=== PATIENT | female | born 1955 | race African-American/Black ===

== ENCOUNTER 2016-11-11 07:40 | Emergency (ER) | payer SELFPAY ==
[2016-11-11 07:44] VITALS: BP 146/79; BMI 19.2
--- NOTE | 2016-11-11 08:13 | DR.GENAD ---
HPI - PCP Primary Care Physician: ULYSSES SANCHEZ - Complaint/Symptoms Chief Complaint Doctors Comments: Patient admits to toothache, swelling of lips. Has a headache not relieved by advil. The headache if frontal, pain level 5/10, not aggravated by noise. Chief Complaint:: PATIENT STATED THAT 3 WEEKS AGO SHE HAD A TOOTHACHE. HER EARS HURT AND NOW HAS CHEST CONGESTION AND ALSO STARTED SWELLING. 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 - Family History History of Family Medical Conditions: Yes Family Medical History: Hypertension - Social History Does patient currently use any type of tobacco product: Yes Have you used tobacco products in the last 12 months: Yes Type of Tobacco Use: Cigarettes Does any household member use tobacco: No Alcohol Use: Occasionally Do you use any recreational Drugs:: No Lives With: Family Lives Where: Home - infectious screening In the last 2 months have you had wt loss of >10#?: NO Have you had fever, night sweats or hemotysis?: No Have you traveled outside the country in the last 6 months?: No Isolation: Standard ROS - Review of Systems Eyes: No Symptoms Reported ENTM: See HPI Respiratoy: No Symptoms Reported Cardiovascular: No Symptoms Reported Gastrointestinal/Abdominal: No Symptoms Reported Genitourinary: No Symptoms Reported Neurological: No Symptoms Reported Musculoskeletal: No Symptoms Reported Integumentary: No Symptoms Reported Hematologic/Lymphatic: No Symptoms Reported Endocrine: No Symptoms Reported Psychiatric: No Symptoms Reported All Other Systems: Reviewed and Negative PE - Vital Signs Vitals: Temperature 97.9 F Pulse Rate 61 Respiratory Rate 20 Blood Pressure 146/79 O2 Sat by Pulse Oximetry 99 - General Limitations: No Limitations General Appearance: Alert, In No Apparent Distress - Head Head Exam: Normal Inspection, Atraumatic - Eyes Eye exam: Normal Appearance, PERRL, EOMI, Periorbital Swelling - ENT ENT Exam: Mucous Membranes Moist, Mucous Membranes Dry, TM's Normal Bilaterally External Ear Exam: Normal External Inspection TM/Canal Exam: Bilateral Normal Nose Exam: Normal Nose Exam Mouth Exam: Lip Swelling (upper lips) Throat Exam: Normal Inspection - Neck Neck Exam: Normal Inspection - Chest Chest Inspection: Normal Inspection - Respiratory Respiratory Exam: Normal Lung Sounds Bilat Respiratory Exam: Bilateral Clear to Auscultation - Cardiovascular Cardiovascular Exam: Regular Rate - Abdominal Exam Abdominal Exam: Normal Inspection Abdominal Tenderness: negative: RUQ, RLQ, LUQ, LLQ, Epigastrium, Suprapubic, Diffuse, Mild, Moderate, Severe, Other - Extremities Extremities Exam: Normal Inspection - Back Back Exam: Normal Inspection - Neurologic Neurological Exam: Alert, Oriented X3, CN II-XII Intact - Psychiatric Psychiatric Exam: Normal Affect - Skin Skin Exam: Warm, Dry, Intact - Diagnosis Discharge Problem: Headache above the eye region Allergic reaction Qualifiers: Encounter type: initial encounter Qualified Code(s): T78.40XA - Allergy, unspecified, initial encounter - Discharge Plan Condition: Stable - Follow ups/Referrals Follow ups/Referrals: ULYSSES SANCHEZ [Primary Care Provider] - 3 days - Instructions
== END 2016-11-11 08:27 | disposition home or self-care (01) ==
LOC: ER 07:47
DX: R51 Headache (principal); T78.40XA Allergy, unspecified, initial encounter
CPT/HCPCS: 99281; 99282

== ENCOUNTER 2023-10-09 14:26 | Observation (INO) ==
--- NOTE | 2023-10-09 14:40 | DR.SEIZA ---
HPI Time Seen Time Seen by Provider: 10/09/23 14:34 Complaints Chief Complaint Doctors Comments: 67-year-old female brought in by EMS for evaluation. Family called EMS stating patient was having possible seizure. On EMS arrival patient was awake and alert, no obvious seizure activity. Family told them the patient started shaking all over, but did not lose consciousness. EMS was told she has not been eating well the past 2 days. Patient states she is eating okay. She denies any fevers or chills. She denies sinus congestion, sore throat, cough patient denies any bowel or bladder issues. No report of chest pain or shortness of breath. 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 Family History Family Medical History: Hypertension Social History Does patient currently use any type of tobacco product: Yes Alcohol Use: DAILY Do you use any recreational Drugs:: No ROS Review of Systems Constitutional: No Symptoms Reported Eyes: No Symptoms Reported ENTM: No Symptoms Reported Respiratoy: Non-Productive Cough Cardiovascular: No Symptoms Reported Gastrointestinal/Abdominal: No Symptoms Reported Genitourinary: No Symptoms Reported Neurological: No Symptoms Reported Musculoskeletal: No Symptoms Reported Integumentary: No Symptoms Reported Hematologic/Lymphatic: No Symptoms Reported All Other Systems: Reviewed and Negative PE Vital Signs Vitals: Vital Signs Pulse Rate [Left] 92 Pulse Rate [Left] 69 Pulse Rate [Left] 71 Pulse Rate 65 Pulse Rate 68 Pulse Rate 66 Pulse Rate 88 Pulse Rate 72 Pulse Rate 68 Respiratory Rate 19 Respiratory Rate 19 Respiratory Rate 22 Respiratory Rate 21 Respiratory Rate 25 Respiratory Rate 20 Respiratory Rate 20 Respiratory Rate 27 Respiratory Rate 24 Respiratory Rate 20 Blood Pressure [Left Arm] 162/77 Blood Pressure [Left Arm] 231/129 Blood Pressure [Left Arm] 226/99 Blood Pressure [Left Arm] 231/97 Blood Pressure 162/77 Blood Pressure 167/83 Blood Pressure 178/85 O2 Sat by Pulse Oximetry 98 O2 Sat by Pulse Oximetry 98 O2 Sat by Pulse Oximetry 98 O2 Sat by Pulse Oximetry 98 O2 Sat by Pulse Oximetry 98 O2 Sat by Pulse Oximetry 100 General General Appearance: Alert and In No Apparent Distress Head Head Exam: Normal Inspection, Atraumatic and Normocephalic Eyes Eye exam: PERRL and EOMI ENT ENT Exam: Normal Oropharynx and Mucous Membranes Moist Neck Neck Exam: Normal Inspection and Full ROM; negative Tenderness Respiratory Respiratory Exam: Normal Lung Sounds Bilat; negative Accessory Muscle Use or Respiratory Distress Cardiovascular Cardiovascular Exam: Regular Rate, Normal Rhythm and Normal Heart Sounds Abdominal Exam Abdominal Exam: Normal Bowel Sounds and Soft; negative Tenderness Extremities Extremities Exam: Normal Inspection and Full ROM; negative Edema Neurologic Neurological Exam: Alert, CN II-XII Intact and Other (Patient has birthdate, not oriented to current date); negative Motor Sensory Deficit COURSE Treatment Treatment: 67-year-old female, sent in via EMS after having a seizure-like episode. Patient was reportedly shaking all over, no seizure active to 50 on EMS arrival. Patient was not postictal. Patient a bit confused, but history of altered mental status in the past, unsure of baseline. Physical exam is overall benign. She is neurologically intact except for slight confusion as to current date. Work-up initiated. Patient given IV fluids. 1646 -BP elevated when the patient was here, given IV hydralazine with good effect. CBC, CMP, TSH, lipase all normal. Troponin is slightly elevated 75.9. No acute ischemic changes on EKG. will repeat 2-hour troponin. Chest x-ray unremarkable for acute abnormalities. 1922 -family member states patient is sleepy, still confused. Patient does drink alcohol on a daily basis. Not sure if the patient had a syncopal episode with seizure-like activity while sitting up, versus a true seizure. CT of the head with chronic changes. Patient has been unable to give a urine sample, soaked a diaper. Recommend observation admission for further observation, will keep on a cardiac cath tech. Will continue IV fluids at a low rate. Patient sees Dr. Camarena, he is on-call [facility]. 1941 - he accepts the admission. [facility] Labs Reviewed Laboratory Results Reviewed?: Yes 10/09/23 14:57 10/09/23 14:57 Laboratory: WBC 7.9 X10^3/uL (3.6-10.0) 10/09/23 14:57 RBC 4.25 X10^6/uL (3.5-5.4) 10/09/23 14:57 Hgb 14.0 g/dL (12.0-16.0) 10/09/23 14:57 Hct 41.9 % (36.0-47.0) 10/09/23 14:57 MCV 98.5 fL (80.0-100.0) 10/09/23 14:57 MCH 32.8 pg (27.0-34.0) 10/09/23 14:57 MCHC 33.3 g/dL (33.0-35.0) 10/09/23 14:57 RDW 13.2 % (11.6-16.5) 10/09/23 14:57 Plt Count 288 X10^3/uL (150.0-450.0) 10/09/23 14:57 MPV 7.5 fL (7.4-11.0) 10/09/23 14:57 Neut % (Auto) 69.1 % (42.0-75.0) 10/09/23 14:57 Lymph % (Auto) 13.4 % (21.0-51.0) L 10/09/23 14:57 [place] % (Auto) 16.6 % (0.0-13.0) H 10/09/23 14:57 Eos % (Auto) 0.0 % (0.9-2.9) L 10/09/23 14:57 Baso % (Auto) 0.9 % (0.2-1.0) 10/09/23 14:57 Neut # (Auto) 5.5 x10^3/uL (2.2-4.8) H 10/09/23 14:57 Lymph # (Auto) 1.1 X10^3/uL (1.3-2.9) L 10/09/23 14:57 [place] # (Auto) 1.3 x10^3/uL (0.3-0.8) H 10/09/23 14:57 Eos # (Auto) 0.0 x10^3/uL (0.0-0.2) 10/09/23 14:57 Baso # (Auto) 0.1 X10^3/uL (0.0-0.1) 10/09/23 14:57 Absolute Nucleated RBC 0.2 /100WBC 10/09/23 14:57 Sodium 140 mmol/L (136-145) 10/09/23 14:57 Corrected Sodium 141 mmol/L (136-145) 10/09/23 14:57 Potassium 3.9 mmol/L (3.5-5.1) 10/09/23 14:57 Chloride 100 mmol/L (98-107) 10/09/23 14:57 Carbon Dioxide 22.9 mmol/L (21-32) 10/09/23 14:57 BUN 13 mg/dL (7-18) 10/09/23 14:57 Creatinine 1.23 mg/dL (0.55-1.02) H 10/09/23 14:57 Est GFR (MDRD) Af Amer 56 (>60) L 10/09/23 14:57 Est GFR (MDRD) Non-Af 47 (>60) L 10/09/23 14:57 Glucose 140 mg/dL (65-99) H 10/09/23 14:57 Calcium 9.6 mg/dL (8.5-10.1) 10/09/23 14:57 Corrected Calcium TNP 10/09/23 14:57 Total Bilirubin 0.90 mg/dL (0.2-1.0) 10/09/23 14:57 AST 53 Units/L (15-37) H 10/09/23 14:57 ALT 39 Units/L (12-78) 10/09/23 14:57 Alkaline Phosphatase 112 Units/L (46-116) 10/09/23 14:57 Ammonia < 10 umol/L (11-32) L 10/09/23 14:57 Troponin I High Sens 75.3 ng/L (4.0-60.0) H* 10/09/23 17:00 Total Protein 8.2 g/dL (6.4-8.2) 10/09/23 14:57 Albumin 3.6 g/dL (3.4-5.0) 10/09/23 14:57 Globulin 4.6 g/dL (2.5-4.5) H 10/09/23 14:57 Albumin/Globulin Ratio 0.8 Ratio (1.1-2.1) L 10/09/23 14:57 Lipase 61 Units/L (16-77) 10/09/23 14:57 TSH 3rd Generation 1.928 uIU/mL (0.358-3.74) 10/09/23 14:57 XRAY XRAY Interpreted by: Both X-ray Results: EXAM: CHEST, 1 VIEW HISTORY: altered mental status; COMPARISON: Prior study or studies were utilized for comparison during interpretation with the most relevant dated 06/14/2023 TECHNIQUE: CHEST, 1 VIEW FINDINGS: Chest: Lines and tubes: Cardiac leads overlie the chest. Mediastinum: Cardiac and mediastinal shadow is within normal limits for size and contour. Pulmonary vessels: No pulmonary vascular congestion. Lung lee: No suspicious airspace opacity. Pleura: No effusion. No pneumothorax. Bones and soft tissues: No acute osseous or soft tissue abnormality. IMPRESSION: 1. No acute cardiopulmonary abnormality THIS IS AN ELECTRONICALLY VERIFIED FINAL REPORT 10/09/2023 3:18 PM - Electronically signed by Nikko Muñoz MD EXAM: BRAIN W/O CON HISTORY: Patient found conscious responding to verbal commands, but confused.; COMPARISON: Head CT 06/13/2023 TECHNIQUE: Multiple CT axial images of the brain were obtained without IV contrast. Coronal and sagittal images were reconstructed. Dose reduction techniques included Automated Exposure Control (AEC) and adjustment of mA and kV. FINDINGS: Age-related findings include central and cortical atrophy with areas of low density in the periventricular white matter compatible with micro-ischemic changes. Otherwise allison and white matter have normal differentiation. There is no mass, shift, or hemorrhage. Cerebellar tonsils are at an appropriate level. No fluid in the sinuses or mucosal thickening to suggest sinusitis. There is no mastoid effusion. There is no calvarium fracture. IMPRESSION: 1. No acute finding THIS IS AN ELECTRONICALLY VERIFIED FINAL REPORT 10/09/2023 4:18 PM - Electronically signed by Lance Galicia MD EKG Rate: 60 [place]: Normal Rhythm: NSR ST: Nonsp Opioid Opioid Risk Tool Age (Mitchell box if 16-45): No History of Preadolescent Sexual Abuse: No Total: 0 Total Score Risk Category: Low Risk Copyright: [facility] predicting aberrant behaviors Discharge Plan Diagnosis Discharge Problem: Altered mental status, Episode of syncope Discharge Plan Patient Disposition: ADMITTED INPATIENT Condition: Stable Prescriptions: No [facility] Concerns: Post Hospitalization: new medications and changes needed to prevent readmission or further decline. Pt educated and given instructions on all concerns. Plan of Treatment: Continue with present treatment and follow up plan. Pt is to keep follow up appointment as instructed and take medications as ordered. Orders to Discharge Patient Discharge Orders: Transfer (Routine); Ordered 06/06/24 Ordered By: Bruce Hayward Follow ups/Referrals Follow ups/Referrals: VALERIE ACOSTA [Primary Care Provider] - 3 days
[2023-10-09] MEDS: NS 500 ML IV 500 ML IV ONE (14:44)
--- NOTE | 2023-10-09 14:50 | EKG ---
Test Reason : altered mental status Blood Pressure : */* mmHG Vent. Rate : 60 BPM Atrial Rate : 60 BPM P-R Int : 164 ms QRS Dur : 104 ms QT Int : 528 ms P-R-T Axes : 69 72 73 degrees QTc Int : 528 ms Normal sinus rhythm T wave abnormality, consider anterior ischemia prominent U wave Prolonged QT Abnormal ECG No previous ECGs available Confirmed by Piyush Leal MD ([id number]) on 10/10/2023 7:34:38 AM Referred By: Confirmed By: Piyush Leal MD
[2023-10-09] MEDS: ZOFRAN INJ 4 MG VIAL IVP ONE ×2 (15:17→17:22)
--- NOTE | 2023-10-09 15:22 | RAD ---
EXAM: CHEST, 1 VIEW HISTORY: altered mental status; COMPARISON: Prior study or studies were utilized for comparison during interpretation with the most relevant thea ed 06/14/2023 TECHNIQUE: CHEST, 1 VIEW FINDINGS: Chest: Lines and tubes: Cardiac leads overlie the chest. Mediastinum: Cardiac and mediastinal shadow is within normal limits for size and contour. Pulmonary vessels: No pulmonary vascular congestion. Lung lee: No suspicious airspace opacity. Pleura: No effusion. No pneumothorax. Bones and soft tissues: No acute osseous or soft tissue abnormality. IMPRESSION: 1. No acute cardiopulmonary abnormality THIS IS AN ELECTRONICALLY VERIFIED FINAL REPORT 10/09/2023 3:18 PM - Electronically signed by Nikko Muñoz MD
[2023-10-09 15:29] LABS: BASOPHILS # (AUTO) 0.1 X10^3/uL (0.0-0.1); BASOPHILS % (AUTO) 0.9 % (0.2-1.0); HEMATOCRIT 41.9 % (36.0-47.0); LYMPHOCYTES # (AUTO) 1.1 X10^3/uL (1.3-2.9); LYMPHOCYTES % (AUTO) 13.4 % (21.0-51.0); MEAN CORPUSCULAR HEMOGLOBIN 32.8 pg (27.0-34.0); MEAN CORPUSCULAR HGB CONC 33.3 g/dL (33.0-35.0); MEAN CORPUSCULAR VOLUME 98.5 fL (80.0-100.0); MEAN PLATELET VOLUME 7.5 fL (7.4-11.0); MONOCYTES # (AUTO) 1.3 x10^3/uL (0.3-0.8); MONOCYTES % (AUTO) 16.6 % (0.0-13.0); NEUTROPHILS # (AUTO) 5.5 x10^3/uL (2.2-4.8); NEUTROPHILS % (AUTO) 69.1 % (42.0-75.0); PLATELET COUNT 288 X10^3/uL (150.0-450.0); RED BLOOD COUNT 4.25 X10^6/uL (3.5-5.4); RED CELL DISTRIBUTION WIDTH 13.2 % (11.6-16.5); WHITE BLOOD COUNT 7.9 X10^3/uL (3.6-10.0)
[2023-10-09 15:35] LABS: ALANINE AMINOTRANSFERASE 39 Units/L (12-78); ALBUMIN 3.6 g/dL (3.4-5.0); ALKALINE PHOSPHATASE 112 Units/L (46-116); ASPARTATE AMINO TRANSFERASE 53 Units/L (15-37); BLOOD UREA NITROGEN 13 mg/dL (7-18); CALCIUM 9.6 mg/dL (8.5-10.1); CARBON DIOXIDE 22.9 mmol/L (21-32); CHLORIDE 100 mmol/L (98-107); COR NA(FOR HYPERGLY) 141 mmol/L (136-145); CREATININE 1.23 mg/dL (0.55-1.02); GLUCOSE 140 mg/dL (65-99); LIPASE 61 Units/L (16-77); POTASSIUM 3.9 mmol/L (3.5-5.1); SODIUM 140 mmol/L (136-145); TOTAL PROTEIN 8.2 g/dL (6.4-8.2); TSH (3RD GENERATION) 1.928 uIU/mL (0.358-3.74); eGFR NON BLACK RACES 47 (>60)
[2023-10-09] MEDS: APRESOLINE INJ 20 MG VIAL IVP ONE (15:48)
--- NOTE | 2023-10-09 16:21 | CT ---
EXAM:BRAIN W/O CONHISTORY:Patient found conscious responding to verbal commands, but confused.;COMPARISON:Head CT 06/13/2023TECHNIQUE:Multiple CT axial images of the brain were obtained without IV contrast. Coronal and sagittal images were reconstructed. Dose reduction techniques included Automated Exposure Control (AEC) and adjustment of mA and kV.FINDINGS:Age-related findings include central and cortical atrophy with areas of low density in the periventricular white matter compatible with micro-ischemic changes.Otherwise allison and white matter have normal differentiation. There is no mass, shift, or hemorrhage. Cerebellar tonsils are at an appropriate level.No fluid in the sinuses or mucosal thickening to suggest sinusitis. There is no mastoid effusion. There is no calvarium fracture.IMPRESSION:1. No acute findingTHIS IS AN ELECTRONICALLY VERIFIED FINAL REPORT10/09/2023 4:18 PM - Electronically signed by Lance Galicia MD
[2023-10-09] MEDS: PROTONIX INJ 40 MG VIAL IVP ONE (17:20)
[2023-10-09 20:09] LABS: BILIRUBIN,URINE NEGATIVE (NEGATIVE); BLOOD/HEMOGLOBIN,URINE NEGATIVE (NEGATIVE); GLUCOSE, URINE NEGATIVE (NEGATIVE); KETONES,URINE 3+ (NEGATIVE); LEUKOCYTE ESTERASE ,URINE NEGATIVE (NEGATIVE); NITRITES,URINE NEGATIVE (NEGATIVE); PROTEIN,URINE 2+ (NEGATIVE); UROBILINOGEN,URINE NORMAL (NORMAL)
[2023-10-09 20:21] LABS: APPEARANCE,URINE CLEAR (CLEAR); BACTERIA,URINE TRACE /HPF (NEGATIVE); COLOR,URINE PALE YELLOW (YELLOW); RBC,URINE NONE SEEN /HPF (0-3); SQUAMOUS EPITHELIAL CELL,UR RARE /HPF (NEGATIVE)
[2023-10-09 22:21] VITALS: BMI 16.1
[2023-10-09] MEDS ORDERED: CONSULT PHARMACY - POTASSIUM & MAGNESIUM XX SCH (22:28)
[2023-10-09] MEDS: NS 1,000 ML IV 1,000 ML IV SCH (23:35)
[2023-10-10 06:23] LABS: BASOPHILS # (AUTO) 0.1 X10^3/uL (0.0-0.1); BASOPHILS % (AUTO) 0.7 % (0.2-1.0); HEMATOCRIT 38.1 % (36.0-47.0); HEMOGLOBIN 12.5 g/dL (12.0-16.0); LYMPHOCYTES # (AUTO) 1.2 X10^3/uL (1.3-2.9); LYMPHOCYTES % (AUTO) 15.5 % (21.0-51.0); MEAN CORPUSCULAR HEMOGLOBIN 32.4 pg (27.0-34.0); MEAN CORPUSCULAR HGB CONC 32.9 g/dL (33.0-35.0); MEAN CORPUSCULAR VOLUME 98.4 fL (80.0-100.0); MEAN PLATELET VOLUME 7.9 fL (7.4-11.0); MONOCYTES # (AUTO) 1.3 x10^3/uL (0.3-0.8); MONOCYTES % (AUTO) 17.7 % (0.0-13.0); NEUTROPHILS % (AUTO) 66.1 % (42.0-75.0); PLATELET COUNT 262 X10^3/uL (150.0-450.0); RED BLOOD COUNT 3.88 X10^6/uL (3.5-5.4); RED CELL DISTRIBUTION WIDTH 13.6 % (11.6-16.5); WHITE BLOOD COUNT 7.5 X10^3/uL (3.6-10.0)
[2023-10-10 07:00] LABS: ALANINE AMINOTRANSFERASE 33 Units/L (12-78); ALBUMIN 3.3 g/dL (3.4-5.0); ALKALINE PHOSPHATASE 90 Units/L (46-116); ASPARTATE AMINO TRANSFERASE 41 Units/L (15-37); BLOOD UREA NITROGEN 12 mg/dL (7-18); CALCIUM 8.9 mg/dL (8.5-10.1); CARBON DIOXIDE 23.9 mmol/L (21-32); CHLORIDE 102 mmol/L (98-107); COR CA(FOR HYPOALB) 9.5 mg/dL (8.5-10.1); GLUCOSE 90 mg/dL (65-99); POTASSIUM 3.4 mmol/L (3.5-5.1); SODIUM 141 mmol/L (136-145); TOTAL PROTEIN 7.4 g/dL (6.4-8.2); eGFR NON BLACK RACES 59 (>60)
--- NOTE | 2023-10-10 13:17 | EKG ---
Test Reason : elevated troponin Blood Pressure : */* mmHG Vent. Rate : 52 BPM Atrial Rate : 52 BPM P-R Int : 158 ms QRS Dur : 90 ms QT Int : 524 ms P-R-T Axes : 84 80 78 degrees QTc Int : 487 ms Sinus bradycardia RSR' or QR pattern in V1 suggests right ventricular conduction delay Possible Left atrial enlargement Nonspecific T wave abnormality Prolonged QT Abnormal ECG When compared with ECG of 09-OCT-2023 14:46, No significant change was found Confirmed by Piyush Leal MD ([id number]) on 10/11/2023 6:32:42 AM Referred By: Confirmed By: Piyush Leal MD
[2023-10-10] MEDS: PROTONIX INJ 40 MG VIAL ONE (14:05)
[2023-10-10] MEDS: APRESOLINE INJ 20 MG VIAL ONE (14:05)
[2023-10-10] MEDS: NS 1,000 ML IV 1,000 ML with MAGNESIUM SULFATE 50% INJ VIAL 1 G, MVI INJ (ADULT) 10 ML IV SCH (14:33)
[2023-10-10] MEDS: PROTONIX INJ 40 MG VIAL IVP SCH (14:33)
--- NOTE | 2023-10-10 14:41 | DR.H&P ---
H&P History & Physical for Day of: H&P Date: 10/10/23 Chief Complaint Chief Complaint: Possible seizure History of Present Illness History of Present Illness: This is a pleasant 67-year-old black female. EMS brought her to the [facility] emergency department for evaluation after the family called them. The patient told them they thought she was having a possible seizure. On arrival of the EMS stated that the patient was alert and awake. There was no obvious seizure activity at that time. The Family told him that the patient had been shaking all over, but she never lost consciousness. The patient is known to have alcohol use disorder, and she states she has been drinking beer every day ever since she was in her 20s. The family states that the patient has not been eating in the last couple of days and that her mental status has also gotten worse over the last several months. The patient denies fever, chills, sinus congestion, cough, sore throat, dysuria, abdominal pain, shortness of breath, or chest pain. She was found to have elevated troponins in the emergency department, but only slightly elevated. A repeat of these enzymes shows that they continue to be slightly elevated. There is no acute ischemic changes on the EKGs. This morning, the patient did not answer questions well and did not recall who her primary care physician was. We discovered that she sees the physicians at the [facility] in [place], [place]. We have not been able to get a medical list from them yet. The family is concerned about her worsening memory. I told him it could be related to chronic alcohol use and that we were going to check vitamin B12 and folate levels. We are also going to start her on a banana bag as well as an alcohol detox protocol. This should help replenish her vitamins if she is deficient in anything and to help minimize the risk of DTs. We will also continue to follow her serial cardiac enzymes and serial EKGs and consult cardiology. 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 Family History Family Medical History: Cancer Social History Does patient currently use any type of tobacco product: No Have you used tobacco products in the last 12 months: Yes Type of Tobacco Use: Cigarettes How many years tobacco product used: 49 Does any household member use tobacco: Yes Alcohol Use: DAILY Drug Use: Marijuana Medications Home Medications: Home Medications Medication Instructions Recorded Confirmed Type NK 10/09/23 10/09/23 History Allergies Allergies Allergy/AdvReac Type Severity Reaction Status Date / Time No Known Drug Allergies Allergy Verified 10/09/23 14:50 Labs 10/10/23 05:50 10/10/23 05:50 Labs: Laboratory WBC 7.5 X10^3/uL (3.6-10.0) 10/10/23 05:50 RBC 3.88 X10^6/uL (3.5-5.4) 10/10/23 05:50 Hgb 12.5 g/dL (12.0-16.0) 10/10/23 05:50 Hct 38.1 % (36.0-47.0) 10/10/23 05:50 MCV 98.4 fL (80.0-100.0) 10/10/23 05:50 MCH 32.4 pg (27.0-34.0) 10/10/23 05:50 MCHC 32.9 g/dL (33.0-35.0) L 10/10/23 05:50 RDW 13.6 % (11.6-16.5) 10/10/23 05:50 Plt Count 262 X10^3/uL (150.0-450.0) 10/10/23 05:50 MPV 7.9 fL (7.4-11.0) 10/10/23 05:50 Neut % (Auto) 66.1 % (42.0-75.0) 10/10/23 05:50 Lymph % (Auto) 15.5 % (21.0-51.0) L 10/10/23 05:50 [place] % (Auto) 17.7 % (0.0-13.0) H 10/10/23 05:50 Eos % (Auto) 0.0 % (0.9-2.9) L 10/10/23 05:50 Baso % (Auto) 0.7 % (0.2-1.0) 10/10/23 05:50 Neut # (Auto) 5.0 x10^3/uL (2.2-4.8) H 10/10/23 05:50 Lymph # (Auto) 1.2 X10^3/uL (1.3-2.9) L 10/10/23 05:50 [place] # (Auto) 1.3 x10^3/uL (0.3-0.8) H 10/10/23 05:50 Eos # (Auto) 0.0 x10^3/uL (0.0-0.2) 10/10/23 05:50 Baso # (Auto) 0.1 X10^3/uL (0.0-0.1) 10/10/23 05:50 Absolute Nucleated RBC 0.1 /100WBC 10/10/23 05:50 Sodium 141 mmol/L (136-145) 10/10/23 05:50 Corrected Sodium TNP 10/10/23 05:50 Potassium 3.4 mmol/L (3.5-5.1) L 10/10/23 05:50 Chloride 102 mmol/L (98-107) 10/10/23 05:50 Carbon Dioxide 23.9 mmol/L (21-32) 10/10/23 05:50 BUN 12 mg/dL (7-18) 10/10/23 05:50 Creatinine 1.00 mg/dL (0.55-1.02) 10/10/23 05:50 Est GFR (MDRD) Af Amer > 60 (>60) 10/10/23 05:50 Est GFR (MDRD) Non-Af 59 (>60) 10/10/23 05:50 Glucose 90 mg/dL (65-99) 10/10/23 05:50 Calcium 8.9 mg/dL (8.5-10.1) 10/10/23 05:50 Corrected Calcium 9.5 mg/dL (8.5-10.1) 10/10/23 05:50 Magnesium 2.6 mg/dL (2.0-2.9) 10/09/23 22:40 Total Bilirubin 1.20 mg/dL (0.2-1.0) H 10/10/23 05:50 AST 41 Units/L (15-37) H 10/10/23 05:50 ALT 33 Units/L (12-78) 10/10/23 05:50 Alkaline Phosphatase 90 Units/L (46-116) 10/10/23 05:50 Ammonia < 10 umol/L (11-32) L 10/09/23 14:57 Creatine Kinase 169 Units/L (26-192) 10/10/23 13:08 Troponin I High Sens 88.4 ng/L (4.0-60.0) H* 10/10/23 13:08 Total Protein 7.4 g/dL (6.4-8.2) 10/10/23 05:50 Albumin 3.3 g/dL (3.4-5.0) L 10/10/23 05:50 Globulin 4.1 g/dL (2.5-4.5) 10/10/23 05:50 Albumin/Globulin Ratio 0.8 Ratio (1.1-2.1) L 10/10/23 05:50 Lipase 61 Units/L (16-77) 10/09/23 14:57 Vitamin B12 859 pg/mL (193-986) 10/10/23 05:50 Folate 14.6 ng/mL (>8.6) 10/10/23 05:50 TSH 3rd Generation 1.928 uIU/mL (0.358-3.74) 10/09/23 14:57 Specimen Type Clean catch urine 10/09/23 19:55 Urine Color Pale yellow (YELLOW) 10/09/23 19:55 Urine Appearance Clear (CLEAR) 10/09/23 19:55 Urine pH 6.0 (5.0 - 8.0) 10/09/23 19:55 Ur Specific [place] 1.015 (1.000-1.030) 10/09/23 19:55 Urine Protein 2+ (NEGATIVE) 10/09/23 19:55 Urine Glucose (UA) Negative (NEGATIVE) 10/09/23 19:55 Urine Ketones 3+ (NEGATIVE) 10/09/23 19:55 Urine Blood Negative (NEGATIVE) 10/09/23 19:55 Urine Nitrite Negative (NEGATIVE) 10/09/23 19:55 Urine Bilirubin Negative (NEGATIVE) 10/09/23 19:55 Urine Urobilinogen Normal (NORMAL) 10/09/23 19:55 Ur Leukocyte Esterase Negative (NEGATIVE) 10/09/23 19:55 Urine RBC None seen /HPF (0-3) 10/09/23 19:55 Urine WBC None seen /HPF (0-5) 10/09/23 19:55 Ur Squamous Epith Cells Rare /HPF (NEGATIVE) 10/09/23 19:55 Urine Bacteria Trace /HPF (NEGATIVE) 10/09/23 19:55 Ur Culture Indicated? No/not indicated 10/09/23 19:55 Review of Systems Constitutional: Weakness and Malaise Eyes: No Symptoms Reported ENT: No Symptoms Reported Respiratory: No Symptoms Reported Cardiovascular: No Symptoms Reported Gastrointestinal: No Symptoms Reported Genitourinary: No Symptoms Reported Musculoskeletal: No Symptoms Reported Skin: No Symptoms Reported Neurological: Weakness, Confusion and Other (Worsening memory) Physical Exam Vital Signs: Vital Signs Temperature 98.6 F Temperature 98.8 F Pulse Rate [Left] 52 Pulse Rate [Left] 55 Respiratory Rate 18 Respiratory Rate 18 Blood Pressure [Left Arm] 120/60 Blood Pressure [Left Arm] 121/82 O2 Sat by Pulse Oximetry 99 O2 Sat by Pulse Oximetry 100 Oriented: Person and Place Eyes: Normal Ear: Normal Nose: Normal Throat: Normal Respiratory: Clear Throughout Cardiovascular: Normal Auscultation: Bowel Sounds: Normal Palpation: Normal Tenderness: Normal Skin: Normal Musculoskeletal: Normal Psychiatric: Normal Mood Description: Calm and Appropriate; negative Depressed, Happy or Suspicious Affect: Flat Speech Pattern: Delayed Assessment/Plan (1) Acute alteration in mental status: Status: Acute Plan: Monitor for improvement. (2) Hypertension: Qualifiers: Hypertension type: unspecified secondary hypertension Qualified Code(s): I15.9 - Secondary hypertension, unspecified Status: Acute (3) Generalized weakness: Narrative Support Text: Secondary to chronic alcoholism Status: Acute (4) Elevated troponin level: Status: Acute Plan: Continue to check serial cardiac enzymes and EKGs. We will go ahead and consult parer Dr. Leal for further evaluation and treatment as her enzymes continue to remain slightly elevated. (5) Alcohol use disorder: Status: Acute Plan: We will initiate the alcohol detox protocol. (6) Memory loss: Status: Acute Plan: Check vitamin B12 and folate levels. Replenish vitamins with banana bags and thiamine injections. Review H&P Reviewed: Yes Patient was examined?: Yes
[2023-10-10 14:51] LABS: BILIRUBIN,URINE NEGATIVE (NEGATIVE); BLOOD/HEMOGLOBIN,URINE NEGATIVE (NEGATIVE); GLUCOSE, URINE NEGATIVE (NEGATIVE); KETONES,URINE 2+ (NEGATIVE); LEUKOCYTE ESTERASE ,URINE 1+ (NEGATIVE); NITRITES,URINE NEGATIVE (NEGATIVE); PROTEIN,URINE 2+ (NEGATIVE); UROBILINOGEN,URINE NORMAL (NORMAL)
[2023-10-10 14:53] LABS: APPEARANCE,URINE CLEAR (CLEAR); COLOR,URINE DARK YELLOW (YELLOW)
[2023-10-10 15:04] LABS: BACTERIA,URINE 1+ /HPF (NEGATIVE); RBC,URINE NONE SEEN /HPF (0-3); SQUAMOUS EPITHELIAL CELL,UR MODERATE /HPF (NEGATIVE)
--- NOTE | 2023-10-10 19:29 | EKG ---
Test Reason : elevated troponin Blood Pressure : */* mmHG Vent. Rate : 61 BPM Atrial Rate : 61 BPM P-R Int : 140 ms QRS Dur : 84 ms QT Int : 454 ms P-R-T Axes : 59 56 61 degrees QTc Int : 457 ms Normal sinus rhythm Septal infarct , age undetermined Nonspecific ST and T wave abnormality Abnormal ECG When compared with ECG of 10-OCT-2023 12:57, (Unconfirmed) No significant change was found Confirmed by Piyush Leal MD ([id number]) on 10/11/2023 6:31:26 AM Referred By: Confirmed By: Piyush Leal MD
[2023-10-10] MEDS: NITRO-BID OINT 2% Multi-Dose tube TD ONE (21:34)
[2023-10-10] MEDS: LOVENOX INJ 60 MG SYR SC SCH (21:34)
--- NOTE | 2023-10-11 00:50 | EKG ---
Test Reason : elevated troponin Blood Pressure : */* mmHG Vent. Rate : 55 BPM Atrial Rate : 55 BPM P-R Int : 168 ms QRS Dur : 86 ms QT Int : 464 ms P-R-T Axes : 78 60 67 degrees QTc Int : 443 ms Sinus bradycardia Possible Left atrial enlargement Abnormal ECG When compared with ECG of 10-OCT-2023 19:15, (Unconfirmed) No significant change was found Confirmed by Piyush Leal MD ([id number]) on 10/11/2023 6:31:04 AM Referred By: Confirmed By: Piyush Leal MD
[2023-10-11] MEDS ORDERED: NS 1,000 ML IV 1,000 ML ONE (02:54)
[2023-10-11] MEDS ORDERED: MAGNESIUM SULFATE 50% INJ VIAL ONE (02:57)
[2023-10-11] MEDS: MVI INJ (ADULT) IV ONE (03:31)
[2023-10-11] MEDS: NS 1,000 ML IV 1,000 ML with MAGNESIUM SULFATE 50% INJ VIAL 1 G, MVI INJ (ADULT) 10 ML IV SCH (03:32)
[2023-10-11 06:39] LABS: BASOPHILS % (AUTO) 0.8 % (0.2-1.0); EOSINOPHILS % (AUTO) 0.7 % (0.9-2.9); HEMATOCRIT 35.5 % (36.0-47.0); HEMOGLOBIN 11.7 g/dL (12.0-16.0); LYMPHOCYTES # (AUTO) 1.8 X10^3/uL (1.3-2.9); MEAN CORPUSCULAR HEMOGLOBIN 32.7 pg (27.0-34.0); MEAN CORPUSCULAR VOLUME 99.3 fL (80.0-100.0); MEAN PLATELET VOLUME 8.1 fL (7.4-11.0); MONOCYTES # (AUTO) 0.9 x10^3/uL (0.3-0.8); MONOCYTES % (AUTO) 14.8 % (0.0-13.0); NEUTROPHILS # (AUTO) 3.4 x10^3/uL (2.2-4.8); NEUTROPHILS % (AUTO) 54.7 % (42.0-75.0); PLATELET COUNT 203 X10^3/uL (150.0-450.0); RED BLOOD COUNT 3.57 X10^6/uL (3.5-5.4); RED CELL DISTRIBUTION WIDTH 12.9 % (11.6-16.5); WHITE BLOOD COUNT 6.3 X10^3/uL (3.6-10.0)
[2023-10-11 06:54] LABS: ALANINE AMINOTRANSFERASE 31 Units/L (12-78); ALBUMIN 2.8 g/dL (3.4-5.0); ALKALINE PHOSPHATASE 88 Units/L (46-116); ASPARTATE AMINO TRANSFERASE 41 Units/L (15-37); BLOOD UREA NITROGEN 7 mg/dL (7-18); CALCIUM 8.6 mg/dL (8.5-10.1); CARBON DIOXIDE 26.5 mmol/L (21-32); CHLORIDE 103 mmol/L (98-107); COR CA(FOR HYPOALB) 9.6 mg/dL (8.5-10.1); CREATININE 0.96 mg/dL (0.55-1.02); GLUCOSE 101 mg/dL (65-99); POTASSIUM 3.2 mmol/L (3.5-5.1); SODIUM 137 mmol/L (136-145); TOTAL PROTEIN 6.5 g/dL (6.4-8.2); eGFR NON BLACK RACES > 60 (>60)
[2023-10-11] MEDS ORDERED: CONSULT PHARMACY - POTASSIUM & MAGNESIUM XX SCH (08:00)
--- NOTE | 2023-10-11 08:09 | EKG ---
Test Reason : elevated troponin Blood Pressure : */* mmHG Vent. Rate : 61 BPM Atrial Rate : 61 BPM P-R Int : 170 ms QRS Dur : 88 ms QT Int : 460 ms P-R-T Axes : 64 68 59 degrees QTc Int : 463 ms Normal sinus rhythm Possible Left atrial enlargement Borderline ECG When compared with ECG of 11-OCT-2023 00:33, No significant change was found Confirmed by Piyush Leal MD ([id number]) on 10/12/2023 6:55:01 AM Referred By: Confirmed By: Piyush Leal MD
[2023-10-11] MEDS: PLAVIX PO SCH (10:12)
[2023-10-11] MEDS: ASPIRIN PO SCH (10:12)
[2023-10-11] MEDS: K-DUR TAB 20 MEQ PO ONE (10:12)
--- NOTE | 2023-10-11 12:36 | PCM.PROG ---
Progress Note Progress Note for Day of Date of Exam: 10/11/23 Subjective Subjective: Patient seen at bedside, no acute events overnight. She was admitted for altered mental status, alcohol detox and elevated troponins. Cardiology was consulted, echo ordered for Friday. Patient denies chest pain or shortness of breath. Denies any seizure-like activity or any tremors. Labs and imaging reviewed: -Hemoglobin: 11.7 potassium: 3.2 troponin: 82, 78, 81 -Normal B12 and folate levels -CT head: No acute process -Chest x-ray: No infection Plan: Follow cardiology recommendations, echo pending. Replace electrolytes as per protocol. Continue banana bag. Add detox protocol as needed. Monitor a.m. labs and imaging. Past Medical Family Social History Allergies: Allergies No Known Drug Allergies Allergy (Verified 10/09/23 14:50) Vital Signs and I&O's Vital Signs: Vital Signs Temperature 97.5 F Pulse Rate [Left] 60 Respiratory Rate 18 Blood Pressure [Right Arm] 130/89 O2 Sat by Pulse Oximetry 100 Intake and Output: Intake & Output 10/08/23 10/09/23 10/10/23 10/11/23 23:59 23:59 23:59 23:59 Intake Total 0 / 0 3108 / 3108 805 / 805 Balance 0 / 0 3108 / 3108 805 / 805 Physical Exam Oriented: Person and Place Eyes: Normal Ear: Normal Nose: Normal Throat: Normal Cardiovascular: Normal Auscultation: Bowel Sounds: Normal Palpation: Normal Tenderness: Normal Skin: Normal Musculoskeletal: Normal Psychiatric: Normal Mood Description: Calm and Appropriate Affect: Flat Speech Pattern: Clear and Appropriate Laboratory and Diagnostics 10/11/23 06:15 10/11/23 06:15 Labs: Laboratory WBC 6.3 X10^3/uL (3.6-10.0) 10/11/23 06:15 RBC 3.57 X10^6/uL (3.5-5.4) 10/11/23 06:15 Hgb 11.7 g/dL (12.0-16.0) L 10/11/23 06:15 Hct 35.5 % (36.0-47.0) L 10/11/23 06:15 MCV 99.3 fL (80.0-100.0) 10/11/23 06:15 MCH 32.7 pg (27.0-34.0) 10/11/23 06:15 MCHC 33.0 g/dL (33.0-35.0) 10/11/23 06:15 RDW 12.9 % (11.6-16.5) 10/11/23 06:15 Plt Count 203 X10^3/uL (150.0-450.0) 10/11/23 06:15 MPV 8.1 fL (7.4-11.0) 10/11/23 06:15 Neut % (Auto) 54.7 % (42.0-75.0) 10/11/23 06:15 Lymph % (Auto) 29.0 % (21.0-51.0) 10/11/23 06:15 [place] % (Auto) 14.8 % (0.0-13.0) H 10/11/23 06:15 Eos % (Auto) 0.7 % (0.9-2.9) L 10/11/23 06:15 Baso % (Auto) 0.8 % (0.2-1.0) 10/11/23 06:15 Neut # (Auto) 3.4 x10^3/uL (2.2-4.8) 10/11/23 06:15 Lymph # (Auto) 1.8 X10^3/uL (1.3-2.9) 10/11/23 06:15 [place] # (Auto) 0.9 x10^3/uL (0.3-0.8) H 10/11/23 06:15 Eos # (Auto) 0.0 x10^3/uL (0.0-0.2) 10/11/23 06:15 Baso # (Auto) 0.0 X10^3/uL (0.0-0.1) 10/11/23 06:15 Absolute Nucleated RBC 0.1 /100WBC 10/11/23 06:15 Sodium 137 mmol/L (136-145) 10/11/23 06:15 Corrected Sodium TNP 10/11/23 06:15 Potassium 3.2 mmol/L (3.5-5.1) L 10/11/23 06:15 Chloride 103 mmol/L (98-107) 10/11/23 06:15 Carbon Dioxide 26.5 mmol/L (21-32) 10/11/23 06:15 BUN 7 mg/dL (7-18) 10/11/23 06:15 Creatinine 0.96 mg/dL (0.55-1.02) 10/11/23 06:15 Est GFR (MDRD) Af Amer > 60 (>60) 10/11/23 06:15 Est GFR (MDRD) Non-Af > 60 (>60) 10/11/23 06:15 Glucose 101 mg/dL (65-99) H 10/11/23 06:15 Calcium 8.6 mg/dL (8.5-10.1) 10/11/23 06:15 Corrected Calcium 9.6 mg/dL (8.5-10.1) 10/11/23 06:15 Magnesium 2.4 mg/dL (2.0-2.9) 10/11/23 06:15 Total Bilirubin 1.10 mg/dL (0.2-1.0) H 10/11/23 06:15 AST 41 Units/L (15-37) H 10/11/23 06:15 ALT 31 Units/L (12-78) 10/11/23 06:15 Alkaline Phosphatase 88 Units/L (46-116) 10/11/23 06:15 Ammonia < 10 umol/L (11-32) L 10/09/23 14:57 Creatine Kinase 182 Units/L (26-192) 10/11/23 06:15 Troponin I High Sens 81.2 ng/L (4.0-60.0) H* 10/11/23 06:15 Total Protein 6.5 g/dL (6.4-8.2) 10/11/23 06:15 Albumin 2.8 g/dL (3.4-5.0) L 10/11/23 06:15 Globulin 3.7 g/dL (2.5-4.5) 10/11/23 06:15 Albumin/Globulin Ratio 0.8 Ratio (1.1-2.1) L 10/11/23 06:15 Lipase 61 Units/L (16-77) 10/09/23 14:57 Vitamin B12 859 pg/mL (193-986) 10/10/23 05:50 Folate 14.6 ng/mL (>8.6) 10/10/23 05:50 TSH 3rd Generation 1.928 uIU/mL (0.358-3.74) 10/09/23 14:57 Specimen Type Clean catch urine 10/10/23 14:20 Urine Color Dark yellow (YELLOW) 10/10/23 14:20 Urine Appearance Clear (CLEAR) 10/10/23 14:20 Urine pH 6.0 (5.0 - 8.0) 10/10/23 14:20 Ur Specific [place] 1.015 (1.000-1.030) 10/10/23 14:20 Urine Protein 2+ (NEGATIVE) 10/10/23 14:20 Urine Glucose (UA) Negative (NEGATIVE) 10/10/23 14:20 Urine Ketones 2+ (NEGATIVE) 10/10/23 14:20 Urine Blood Negative (NEGATIVE) 10/10/23 14:20 Urine Nitrite Negative (NEGATIVE) 10/10/23 14:20 Urine Bilirubin Negative (NEGATIVE) 10/10/23 14:20 Urine Urobilinogen Normal (NORMAL) 10/10/23 14:20 Ur Leukocyte Esterase 1+ (NEGATIVE) 10/10/23 14:20 Urine RBC None seen /HPF (0-3) 10/10/23 14:20 Urine WBC 3-5 /HPF (0-5) 10/10/23 14:20 Ur Squamous Epith Cells Moderate /HPF (NEGATIVE) 10/10/23 14:20 Urine Bacteria 1+ /HPF (NEGATIVE) 10/10/23 14:20 Ur Culture Indicated? No/not indicated 10/10/23 14:20 Plan (1) Acute alteration in mental status: Status: Acute Plan: Monitor for improvement. (2) Hypertension: Status: Acute Qualifiers: Hypertension type: unspecified secondary hypertension Qualified Code(s): I15.9 - Secondary hypertension, unspecified (3) Generalized weakness: Status: Acute (4) Elevated troponin level: Status: Acute (5) Alcohol use disorder: Status: Acute Plan: We will initiate the alcohol detox protocol. (6) Memory loss: Status: Acute
[2023-10-11] MEDS: NS 1,000 ML IV 1,000 ML with MAGNESIUM SULFATE 50% INJ VIAL 1 G IV SCH (15:02)
[2023-10-12] MEDS ORDERED: NS 1,000 ML IV 1,000 ML ONE (05:20)
[2023-10-12] MEDS ORDERED: MAGNESIUM SULFATE 50% INJ VIAL ONE (05:20)
[2023-10-12] MEDS: MAGNESIUM SULFATE 1 GRAM/100 mL PREMIX 0 G/0 ML BAG IV ONE (05:53)
[2023-10-12 06:43] LABS: BASOPHILS % (AUTO) 0.7 % (0.2-1.0); EOSINOPHILS # (AUTO) 0.1 x10^3/uL (0.0-0.2); EOSINOPHILS % (AUTO) 1.5 % (0.9-2.9); HEMATOCRIT 35.9 % (36.0-47.0); HEMOGLOBIN 11.9 g/dL (12.0-16.0); LYMPHOCYTES # (AUTO) 1.6 X10^3/uL (1.3-2.9); LYMPHOCYTES % (AUTO) 27.6 % (21.0-51.0); MEAN CORPUSCULAR HGB CONC 33.3 g/dL (33.0-35.0); MEAN PLATELET VOLUME 7.8 fL (7.4-11.0); MONOCYTES # (AUTO) 0.9 x10^3/uL (0.3-0.8); MONOCYTES % (AUTO) 16.3 % (0.0-13.0); NEUTROPHILS % (AUTO) 53.9 % (42.0-75.0); PLATELET COUNT 187 X10^3/uL (150.0-450.0); RED BLOOD COUNT 3.62 X10^6/uL (3.5-5.4); RED CELL DISTRIBUTION WIDTH 12.6 % (11.6-16.5); WHITE BLOOD COUNT 5.6 X10^3/uL (3.6-10.0)
[2023-10-12 07:03] LABS: ALANINE AMINOTRANSFERASE 31 Units/L (12-78); ALBUMIN 2.8 g/dL (3.4-5.0); ALKALINE PHOSPHATASE 78 Units/L (46-116); ASPARTATE AMINO TRANSFERASE 35 Units/L (15-37); BLOOD UREA NITROGEN 4 mg/dL (7-18); CALCIUM 8.7 mg/dL (8.5-10.1); CARBON DIOXIDE 28.9 mmol/L (21-32); CHLORIDE 102 mmol/L (98-107); COR CA(FOR HYPOALB) 9.7 mg/dL (8.5-10.1); GLUCOSE 104 mg/dL (65-99); POTASSIUM 3.8 mmol/L (3.5-5.1); SODIUM 137 mmol/L (136-145); TOTAL PROTEIN 6.8 g/dL (6.4-8.2); eGFR NON BLACK RACES > 60 (>60)
--- NOTE | 2023-10-12 11:55 | PCM.PROG ---
Progress Note Progress Note for Day of Date of Exam: 10/12/23 Subjective Subjective: Patient seen at bedside, no acute events overnight. She is feeling better. She was admitted for altered mental status, alcohol detox and elevated troponins. Cardiology was consulted, echo ordered for Friday. Patient denies chest pain or shortness of breath. Denies any seizure-like activity or any tremors. Labs and imaging reviewed: -Hemoglobin: 11.9 potassium: 3.8 troponin: 82, 78, 81 -Normal B12 and folate levels -CT head: No acute process -Chest x-ray: No infection Plan: Follow cardiology recommendations, echo pending. Replace electrolytes as per protocol. Continue banana bag. Continue detox protocol as needed. PT/OT as tolerated. Monitor a.m. labs and imaging. Past Medical Family Social History Allergies: Allergies No Known Drug Allergies Allergy (Verified 10/09/23 14:50) Vital Signs and I&O's Vital Signs: Vital Signs Temperature 99.3 F Temperature 98.4 F Pulse Rate [Left] 60 Pulse Rate [Left] 51 Respiratory Rate 18 Respiratory Rate 18 Blood Pressure [Right Arm] 152/81 Blood Pressure [Right Arm] 148/75 O2 Sat by Pulse Oximetry 100 O2 Sat by Pulse Oximetry 99 Intake and Output: Intake & Output 10/09/23 10/10/23 10/11/23 10/12/23 23:59 23:59 23:59 23:59 Intake Total 0 / 0 3108 / 3108 4716 / 4716 1345 / 1345 Balance 0 / 0 3108 / 3108 4716 / 4716 1345 / 1345 Physical Exam Oriented: Person and Place Eyes: Normal Ear: Normal Nose: Normal Throat: Normal Respiratory: Generalized and Diminished Cardiovascular: Normal Auscultation: Bowel Sounds: Normal Palpation: Normal Tenderness: Normal Skin: Normal Musculoskeletal: Normal Psychiatric: Normal Mood Description: Calm and Appropriate Affect: Flat Speech Pattern: Clear and Appropriate Laboratory and Diagnostics 10/12/23 06:15 10/12/23 06:15 Labs: Laboratory WBC 5.6 X10^3/uL (3.6-10.0) 10/12/23 06:15 RBC 3.62 X10^6/uL (3.5-5.4) 10/12/23 06:15 Hgb 11.9 g/dL (12.0-16.0) L 10/12/23 06:15 Hct 35.9 % (36.0-47.0) L 10/12/23 06:15 MCV 99.0 fL (80.0-100.0) 10/12/23 06:15 MCH 33.0 pg (27.0-34.0) 10/12/23 06:15 MCHC 33.3 g/dL (33.0-35.0) 10/12/23 06:15 RDW 12.6 % (11.6-16.5) 10/12/23 06:15 Plt Count 187 X10^3/uL (150.0-450.0) 10/12/23 06:15 MPV 7.8 fL (7.4-11.0) 10/12/23 06:15 Neut % (Auto) 53.9 % (42.0-75.0) 10/12/23 06:15 Lymph % (Auto) 27.6 % (21.0-51.0) 10/12/23 06:15 [place] % (Auto) 16.3 % (0.0-13.0) H 10/12/23 06:15 Eos % (Auto) 1.5 % (0.9-2.9) 10/12/23 06:15 Baso % (Auto) 0.7 % (0.2-1.0) 10/12/23 06:15 Neut # (Auto) 3.0 x10^3/uL (2.2-4.8) 10/12/23 06:15 Lymph # (Auto) 1.6 X10^3/uL (1.3-2.9) 10/12/23 06:15 [place] # (Auto) 0.9 x10^3/uL (0.3-0.8) H 10/12/23 06:15 Eos # (Auto) 0.1 x10^3/uL (0.0-0.2) 10/12/23 06:15 Baso # (Auto) 0.0 X10^3/uL (0.0-0.1) 10/12/23 06:15 Absolute Nucleated RBC 0.1 /100WBC 10/12/23 06:15 Sodium 137 mmol/L (136-145) 10/12/23 06:15 Corrected Sodium TNP 10/12/23 06:15 Potassium 3.8 mmol/L (3.5-5.1) 10/12/23 06:15 Chloride 102 mmol/L (98-107) 10/12/23 06:15 Carbon Dioxide 28.9 mmol/L (21-32) 10/12/23 06:15 BUN 4 mg/dL (7-18) L 10/12/23 06:15 Creatinine 0.70 mg/dL (0.55-1.02) 10/12/23 06:15 Est GFR (MDRD) Af Amer > 60 (>60) 10/12/23 06:15 Est GFR (MDRD) Non-Af > 60 (>60) 10/12/23 06:15 Glucose 104 mg/dL (65-99) H 10/12/23 06:15 Calcium 8.7 mg/dL (8.5-10.1) 10/12/23 06:15 Corrected Calcium 9.7 mg/dL (8.5-10.1) 10/12/23 06:15 Magnesium 2.0 mg/dL (2.0-2.9) 10/12/23 06:15 Total Bilirubin 0.90 mg/dL (0.2-1.0) 10/12/23 06:15 AST 35 Units/L (15-37) 10/12/23 06:15 ALT 31 Units/L (12-78) 10/12/23 06:15 Alkaline Phosphatase 78 Units/L (46-116) 10/12/23 06:15 Ammonia < 10 umol/L (11-32) L 10/09/23 14:57 Creatine Kinase 182 Units/L (26-192) 10/11/23 06:15 Troponin I High Sens 81.2 ng/L (4.0-60.0) H* 10/11/23 06:15 Total Protein 6.8 g/dL (6.4-8.2) 10/12/23 06:15 Albumin 2.8 g/dL (3.4-5.0) L 10/12/23 06:15 Globulin 4.0 g/dL (2.5-4.5) 10/12/23 06:15 Albumin/Globulin Ratio 0.7 Ratio (1.1-2.1) L 10/12/23 06:15 Lipase 61 Units/L (16-77) 10/09/23 14:57 Vitamin B12 859 pg/mL (193-986) 10/10/23 05:50 Folate 14.6 ng/mL (>8.6) 10/10/23 05:50 TSH 3rd Generation 1.928 uIU/mL (0.358-3.74) 10/09/23 14:57 Specimen Type Clean catch urine 10/10/23 14:20 Urine Color Dark yellow (YELLOW) 10/10/23 14:20 Urine Appearance Clear (CLEAR) 10/10/23 14:20 Urine pH 6.0 (5.0 - 8.0) 10/10/23 14:20 Ur Specific [place] 1.015 (1.000-1.030) 10/10/23 14:20 Urine Protein 2+ (NEGATIVE) 10/10/23 14:20 Urine Glucose (UA) Negative (NEGATIVE) 10/10/23 14:20 Urine Ketones 2+ (NEGATIVE) 10/10/23 14:20 Urine Blood Negative (NEGATIVE) 10/10/23 14:20 Urine Nitrite Negative (NEGATIVE) 10/10/23 14:20 Urine Bilirubin Negative (NEGATIVE) 10/10/23 14:20 Urine Urobilinogen Normal (NORMAL) 10/10/23 14:20 Ur Leukocyte Esterase 1+ (NEGATIVE) 10/10/23 14:20 Urine RBC None seen /HPF (0-3) 10/10/23 14:20 Urine WBC 3-5 /HPF (0-5) 10/10/23 14:20 Ur Squamous Epith Cells Moderate /HPF (NEGATIVE) 10/10/23 14:20 Urine Bacteria 1+ /HPF (NEGATIVE) 10/10/23 14:20 Ur Culture Indicated? No/not indicated 10/10/23 14:20 Plan (1) Acute alteration in mental status: Status: Acute Plan: Monitor for improvement. (2) Hypertension: Status: Acute Qualifiers: Hypertension type: unspecified secondary hypertension Qualified Code (s): I15.9 - Secondary hypertension, unspecified (3) Generalized weakness: Status: Acute (4) Elevated troponin level: Status: Acute (5) Alcohol use disorder: Status: Acute (6) Memory loss: Status: Acute
[2023-10-13] MEDS ORDERED: MAGNESIUM SULFATE 50% INJ VIAL ONE (03:29)
[2023-10-13] MEDS ORDERED: NS 1,000 ML IV 1,000 ML ONE (03:29)
[2023-10-13 06:15] LABS: EOSINOPHILS # (AUTO) 0.1 x10^3/uL (0.0-0.2); HEMOGLOBIN 11.9 g/dL (12.0-16.0); MEAN PLATELET VOLUME 7.9 fL (7.4-11.0)
[2023-10-13 06:25] LABS: ALANINE AMINOTRANSFERASE 29 Units/L (12-78); ALBUMIN 2.9 g/dL (3.4-5.0); ALKALINE PHOSPHATASE 77 Units/L (46-116); ASPARTATE AMINO TRANSFERASE 30 Units/L (15-37); BLOOD UREA NITROGEN 2 mg/dL (7-18); CALCIUM 8.9 mg/dL (8.5-10.1); CARBON DIOXIDE 30.7 mmol/L (21-32); CHLORIDE 102 mmol/L (98-107); COR CA(FOR HYPOALB) 9.8 mg/dL (8.5-10.1); CREATININE 0.68 mg/dL (0.55-1.02); GLUCOSE 101 mg/dL (65-99); POTASSIUM 3.3 mmol/L (3.5-5.1); SODIUM 139 mmol/L (136-145); TOTAL PROTEIN 6.8 g/dL (6.4-8.2); eGFR NON BLACK RACES > 60 (>60)
[2023-10-13 06:26] LABS: BASOPHILS % (AUTO) 0.6 % (0.2-1.0); HEMATOCRIT 36.4 % (36.0-47.0); LYMPHOCYTES # (AUTO) 1.6 X10^3/uL (1.3-2.9); MEAN CORPUSCULAR HEMOGLOBIN 32.4 pg (27.0-34.0); MEAN CORPUSCULAR HGB CONC 32.7 g/dL (33.0-35.0); MONOCYTES % (AUTO) 16.8 % (0.0-13.0); NEUTROPHILS # (AUTO) 3.5 x10^3/uL (2.2-4.8); NEUTROPHILS % (AUTO) 55.6 % (42.0-75.0); PLATELET COUNT 193 X10^3/uL (150.0-450.0); RED BLOOD COUNT 3.68 X10^6/uL (3.5-5.4); WHITE BLOOD COUNT 6.2 X10^3/uL (3.6-10.0)
[2023-10-13] MEDS ORDERED: CONSULT PHARMACY - POTASSIUM & MAGNESIUM XX SCH ×2 (07:00)
--- NOTE | 2023-10-13 08:17 | DR.CONSULT ---
CONSULT Consultation for Day of: Date: 10/13/23 Chief Complaint Chief Complaint: altered mental status Allergies Allergies Allergy/AdvReac Type Severity Reaction Status Date / Time No Known Drug Allergies Allergy Verified 10/09/23 14:50 History of Present Illness History of Present Illness: 67 yo female- has htn/etoh and tobacco use- admitted for AMS- head ct/brain ct negative- doing ok today as oriented- states walks with rare cp- no hx of mi- drinks beer daily- smokes 1/2 pk/day- 8 troponins elevated around 80, no ischemic ekg changes Past Medical History Past Medical History: GERD and Hypertension Additional Medical History: Alcohol use disorder/chronic alcoholism Past Surgical History Surgical History: COAT FELLER Surgery Family History Family Medical History: Cancer Social History Does patient currently use any type of tobacco product: No Have you used tobacco products in the last 12 months: Yes Type of Tobacco Use: Cigarettes How many years tobacco product used: 49 Does any household member use tobacco: Yes Alcohol Use: DAILY Drug Use: Marijuana Medications Home Medications: No Known Drug Allergies Allergy (Verified 10/09/23 14:50) CONTINUE taking the following medications NK 10/09/23 [History] Physical Exam Vital Signs: Vital Signs Temperature 98.3 F Pulse Rate [Left] 65 Respiratory Rate 18 Blood Pressure [Right Arm] 155/82 O2 Sat by Pulse Oximetry 96 alert ox3 no bruits/no jjd clear lungs soft gómez no edema/fair pulses labs: hct 36, wbc 6.2 k 3.3 troponin x 8= all around 80, alb 2.9 cxr: nad ekg: nsr ns st/t /u waves- no changes of [place] with serial ekgs Plan (1) Acute alteration in mental status: Status: Acute (2) Hypertension: Status: Acute Qualifiers: Hypertension type: unspecified secondary hypertension Qualified Code(s): I15.9 - Secondary hypertension, unspecified (3) Generalized weakness: Status: Acute (4) Elevated troponin level: Status: Acute Narrative Support Text: no h/o cp/mi but AMS??- troponins chronic elevation at 80- not at all c/w acute [place]- no evolutionary ekg changes- Plan: echo- if normal lv function- will consider outpt stress test- resume bp med- (5) Alcohol use disorder: Status: Acute (6) Memory loss: Status: Acute
[2023-10-13] MEDS ORDERED: K-DUR TAB 20 MEQ PO SCH (09:00)
[2023-10-13] MEDS ORDERED: ZESTRIL TAB 20 MG ONE (09:27)
[2023-10-13] MEDS: ZESTRIL TAB 20 MG PO SCH (09:37)
[2023-10-13] MEDS: NS + KCL 20 MEQ/L 1,000 ML with MAGNESIUM SULFATE 50% INJ VIAL 2 G IV SCH (10:42)
[2023-10-13 16:06] VITALS: BP 107/64; PULSE 66; RESP 18; TEMP 97.2; O2SAT 97
== END 2023-10-13 16:50 | disposition home or self-care (01) ==
LOC: ER 14:26 → MED/SURG 14:26
PROVIDERS: ADMIT Family Medicine; ATTEND Family Medicine
DX: I15.9 Secondary hypertension, unspecified; R53.1 Weakness; R79.89 Other specified abnormal findings of blood chemistry; F10.90 Alcohol use, unspecified, uncomplicated; R41.3 Other amnesia; F12.90 Cannabis use, unspecified, uncomplicated; R94.31 Abnormal electrocardiogram [ECG] [EKG]; Z72.0 Tobacco use; R41.82 Altered mental status, unspecified